=== PATIENT | female | born 1990 | race Caucasian/White ===

== ENCOUNTER 2016-05-18 13:46 | Emergency (ER) | payer OTHER ==
--- NOTE | ~2016-05-18 | CT4 ---
[facility] A Service of [facility] & [facility] RADIOLOGY TEXT RESULTS PATIENT: NILAM WEST LOCATION: [facility] : [birth year] UNIT #: [id number] AGE: [address]: Veronika Garcia MD SEX: F ORDER DR: [id number] [facility] [address] [place], [place] [address] [id number] E MR#: [id number] Acc #: [id number] NAME: NILAM WEST. : 1990 SEX: F STUDY DATE/TIME: 05/18/2016 15:10 UNIT: [facility] ROOM: STUDY DESCRIPTION: CT Abd and Pelv Wo Cont Attending Physician: Veronika Garcia M.D. Ordering Physician: Veronika Garcia M.D. Primary Care Physician: Singh Flores M.D. MEDICAL IMAGING REPORT This report is preliminary unless electronic signature is present EXAM CT abdomen and pelvis 05/18 INDICATIONS Left side abdominal pain and pressure for the last 2 days. Pain currently rates 8 out of 10. Patient also reports constipation. TECHNIQUE Axial images were obtained through the abdomen and pelvis without contrast. Multiplanar reformats were obtained. This CT exam was performed with one or more of the following radiation dose reduction techniques: automatic control, adjustment of mA and/or kV according to patient size, and iterative reconstruction. COMPARISON No comparison. FINDINGS ABDOMEN: Lung bases are clear except for some mild dependent atelectasis in the right lower lobe. Gallbladder may contain a tiny stone but is otherwise unremarkable. No renal or ureteral stones are seen and there is no hydronephrosis. The unenhanced solid organs are normal. The unopacified GI tract is normal. PELVIS: There are no lower ureteral stones. The bladder is normal. The solid pelvic organs are normal. The appendix is normal. The remainder of the unopacified GI tract is normal as well. No free fluid. IMPRESSION 1. No acute findings in the abdomen or pelvis. 2. No renal or ureteral stones. No hydronephrosis. 3. Normal unopacified GI tract including the appendix. 4. Probable tiny gallstones within an otherwise normal-appearing STS. [facility] A Service of [facility] & [facility] RADIOLOGY TEXT RESULTS PATIENT: NILAM WEST LOCATION: [facility] : [birth year] UNIT #: [id number] AGE: [address]: Veronika Garcia MD SEX: F ORDER DR: gallbladder. Dictated by... Zay Camacho Jr., M.D. THIS IS AN ELECTRONICALLY VERIFIED REPORT Zay Camacho Jr., M.D. at 05/19/2016 8:10 AM IVORY/thuan TD: 05/18/2016 20:07 JOB #: [id number] MEDICAL IMAGING REPORT Page 1 of 1 COPY
[~2016-05-18 13:46] MED LIST: ALBUTEROL17 GM INH; ALLEGRA60 M1 PO; AMOXICILLIN PO; BACTRIM DS TABL1 TA1; BENTYL20 M1 PO; COLACE PO; DOXYCYCLINE150 MG PO; ELIMITE60 GM TD; ELIMITE60 GM TOP; FLEXERIL10 M1 PO; FLEXERIL10 MG PO; HIGH BLOOD PRESSURE; HYDROXYZINE HCL50 MG PO; IBUPROFEN PO; IBUPROFEN800 MG PO; IMITREX; MAGIC MOUTHWASH MM; MOBIC15 MG PO; MOTRIN600 MG; NAPROXEN250 MG PO; NO MEDICATIONS; NORCO1 TAB 10/3 PO; PHENERGAN25 M1 PO; PHENERGAN25 MG PO; PREDNISONE1 MG PO; PRENATAL MULITV1 TAB PO; PRENATAL VITAMI1 TA3 PO; PRILOSEC20 M1 PO; PROTONIX; ROBITUSSIN COU118 M8 PO; VOLTAREN75 MG PO; ZOFRAN PO; ZOLOFT PO; ZYRTEC PO; [UNRECOGNIZED DRUG - OTHER]; [UNRECOGNIZED DRUG - OTHER] AD; [UNRECOGNIZED DRUG - REMARK]
[2016-05-18 13:53] LABS: BASOPHIL# 0.1 X10e3 (0-0.3); BASOPHIL% 1.1 % (0-2.5); EOSINOPHIL# 0.1 X10e3 (0-0.7); EOSINOPHIL% 1.9 % (0.0-7.0); HEMATOCRIT 49.1 % (35.0-45.0); HEMOGLOBIN 16.4 gm/dL (12.0-16.0); LYMPHOCYTE# 1.8 X10e3 (1.0-3.5); LYMPHOCYTE% 25.9 % (17.0-45.0); MEAN CELL VOLUME 94.8 FL (83-96); MEAN CORPUSCULAR HEMOGLOBIN 31.7 PG (28-34); MEAN CORPUSCULAR HGB CONC 33.5 g/dL (30-36); MEAN PLATELET VOLUME 8.8 FL (6.5-11.5); MONOCYTE# 0.5 X10e3 (0-1.0); MONOCYTE% 6.6 % (3.0-12.0); NEUTROPHIL# 4.4 X10e3 (1.5-7.1); NEUTROPHIL% 64.5 % (40-75); PLATELET COUNT 245 X10e3 (140-420); RED BLOOD COUNT 5.18 X10e (3.90-5.30); RED CELL DISTRIBUTION WIDTH 12.9 % (11.0-15.5); WHITE BLOOD COUNT 6.8 X10e3 (4.0-10.5)
[2016-05-18 14:04] LABS: DIFF IND NO
[2016-05-18 14:24] LABS: ALBUMIN SERUM 4.6 g/dL (3.5-5.0); ALKALINE PHOSPHATASE 105 U/L (32-92); ALT (SGPT) 21 U/L (10-40); AST (SGOT) 19 U/L (10-42); BILIRUBIN, DIRECT 0.1 mg/dL (0.0-0.2); BILIRUBIN,INDIRECT 0.3 mg/dL (0.0-0.9); BILIRUBIN,TOTAL 0.4 mg/dL (0.2-2.0); BLOOD UREA NITROGEN 9 mg/dL (9-23); BUN/CREATININE RATIO 12.85; CALCIUM SERUM 9.6 mg/dL (8.4-10.2); CARBON DIOXIDE 23 mmol/L (22-31); CHLORIDE 107 mmol/L (100-111); CREATININE SERUM 0.7 mg/dL (0.6-1.4); GLOM FILT RATE Estimated ABOVE60 mL/min (>60); GLUCOSE FASTING 88 mg/dL (70-110); LIPASE 44 U/L (22-51); POTASSIUM 3.5 mmol/L (3.5-5.1); PROTEIN TOTAL SERUM 8.1 g/dL (6.0-8.3); SODIUM 140 mmol/L (135-145)
[2016-05-18 16:44] LABS: URINE SOURCE CLEAN CATCH
[2016-05-18 16:55] LABS: URINE APPEARANCE CLEAR; URINE BILIRUBIN NEG (NEG); URINE BLOOD 1+ (NEG); URINE COLOR YELLOW; URINE GLUCOSE NEG (NEG); URINE KETONE NEG (NEG); URINE LEUKOCYTE ESTERASE NEG (NEG); URINE NITRATE NEG (NEG); URINE PH 6.5 (5-8); URINE PROTEIN NEG (NEG); URINE SPECIFIC GRAVITY 1.008 (1.003-1.035); URINE UROBILINOGEN 0.2 MG/DL (NEG)
[2016-05-18 16:58] LABS: URBCS1 AUWI 0-2 /[HPF] (0-2); URINE BACTERIA AUWI NEG (NEGATIVE); URINE SQUAMOUS EPITHELIAL CELL NONE SEEN /[HPF]; UWBCS1 AUWI 0-2 (0-5)
[2016-05-18 17:00] LABS: CULTURE INDICATED? NO
== END 2016-05-18 17:33 | disposition home or self-care (01) ==
LOC: CED 13:46
PROVIDERS: Emergency Medicine
DX: K59.00 Constipation, unspecified (principal); R10.32 Left lower quadrant pain; I10 Essential (primary) hypertension; F17.210 Nicotine dependence, cigarettes, uncomplicated; Z88.8 Allergy status to other drugs, medicaments and biological substances
CPT/HCPCS: 36415; 74176; 80048; 80076; 81003; 83690; 84703; 85025; 96361; 96374; 99284; J1885